=== PATIENT | male | born 1980 | race African-American/Black ===

== ENCOUNTER 2019-04-20 02:17 | Emergency (ER) | payer OTHER ==
[~2019-04-20] VITALS: Ht 167.6 cm; Wt 68.0 kg
[2019-04-20 02:35] VITALS: BP 140/86
== END 2019-04-20 03:58 | disposition left against medical advice (07) ==
LOC: ER 02:17
DX: Z53.21 Procedure and treatment not carried out due to patient leaving prior to being seen by health care provider (principal)

== ENCOUNTER 2019-04-20 23:44 | Emergency (ER) | payer OTHER ==
[~2019-04-20] VITALS: Ht 167.6 cm; Wt 68.0 kg
[2019-04-21 03:48] VITALS: BP 119/75
== END 2019-04-21 03:52 | disposition home or self-care (01) ==
LOC: ER 23:44
DX: J20.9 Acute bronchitis, unspecified (principal)
CPT/HCPCS: 71045; 99283